=== PATIENT | male | born 1955 | race Caucasian/White ===

== ENCOUNTER 2016-07-23 17:32 | Emergency (ER) | payer BC ==
[~2016-07-23] VITALS: Ht 165.1 cm; Wt 72.6 kg
[2016-07-23 17:32] VITALS: BP 130/79; PULSE 81; RESP 18; TEMP 97.6; O2SAT 98
--- NOTE | 2016-07-23 17:35 | NUR ---
Patient triaged and placed in waiting room. VSS and patient appears in no acute distress at this time. Accompanied by FAMILY, awaiting available bed, and MD notified of need for MSE.
--- NOTE | 2016-07-23 19:24 | NUR ---
Patient to ER bed 4 to gown for evaluation. Side rails up. Report given to NURSE.
--- NOTE | 2016-07-23 19:35 | NUR ---
Patient AAO x4, sitting in bed, c/o blurred vision while driving , blurred vision now resolved, diarrhea and vomiting after eating potato chips. Patient states he "feels better now," no acute distress noted. Will continue to monitor.
--- NOTE | 2016-07-23 19:45 | NUR ---
ER at bedside examining patient.
[2016-07-23 20:05] VITALS: BP 125/75; PULSE 80; RESP 18; TEMP 97.6; O2SAT 98
--- NOTE | 2016-07-23 20:05 | NUR ---
Patient given written and verbal discharge instructions by Dr. Thorpe and patient verbalizes understanding. ER MD discussed with patient the results and treatment provided. Patient in stable condition. ID arm band removed. No Rx given. Patient educated on pain management and to follow up with PMD. Pain Scale 0/10. Opportunity for questions provided and answered.
== END 2016-07-23 20:05 | disposition home or self-care (01) ==
LOC: SED 17:32 → EDSEX 17:32 → SED 20:05
DX: T62.8X1A Toxic effect of other specified noxious substances eaten as food, accidental (unintentional), initial encounter (principal); Z88.0 Allergy status to penicillin; Y92.89 Other specified places as the place of occurrence of the external cause
CPT/HCPCS: 99281